=== PATIENT | male | born 1995 | race Caucasian/White ===

== ENCOUNTER 2017-02-18 21:26 | Emergency (ER) | payer BC ==
[~2017-02-18] VITALS: Ht 180.3 cm; Wt 75.0 kg
[2017-02-18 21:27] VITALS: BP 173/95; PULSE 73; RESP 20; TEMP 98.4; O2SAT 100
[2017-02-18] MEDS ORDERED: LISI10TA3 PO (21:45)
[2017-02-18] MEDS ORDERED: diphenhydrAMINE HCL 50 MG/ML VIAL ONE (21:49)
[2017-02-18] MEDS ORDERED: SODIUM CHLOR 0.9% 1000 ML INJ 1,000 ML IV SCH (21:51)
[2017-02-18 21:55] VITALS: BP 155/74; PULSE 77; RESP 16; O2SAT 100
[2017-02-18] MEDS ORDERED: SODIUM CHLOR 0.9% 1000 ML INJ 1,000 ML IV ONE (22:00)
[2017-02-18] MEDS ORDERED: FAMOTIDINE 20 MG/2 ML VIAL IV PUSH ONE (22:00)
[2017-02-18] MEDS ORDERED: DEXAMETHASONE SOD PHOS 20 MG/5 ML VIAL IV PUSH ONE (22:00)
[2017-02-18] MEDS ORDERED: diphenhydrAMINE HCL 50 MG/ML VIAL IVP ONE (22:00)
[2017-02-18] MEDS ORDERED: SODIUM CHLORIDE 0.9% FLUSH 10 ML FLUSH IV FLUSH PRN (22:00)
[2017-02-18] MEDS ORDERED: EPINEPHrine HCL (1:1000) 1 MG/ML VIAL IM ONE (22:00)
--- NOTE | 2017-02-18 22:08 | PD ---
HPI Chief Complaint: Allergic/Adverse Reaction Time Seen by Provider: 21:51 Travel History International Travel<30 days: No Contact w/Intl Traveler<30days: No Traveled to known affect area: No History of Present Illness HPI Patient is a 21-year-old male who presents to emergency room with complaints of allergic reaction. Patient reports that prior to arrival to the ER, he began to break out in a rash all over his body. Reports that now, he has noticed some swelling to his lower lip. Reports no airway compromise, reports that he is able to swallow and breathe without any difficulty. Patient reports that he has not had any change in medications or has not eaten anything different or used any new products. Patient reports that he was recently started on lisinopril a few months ago for treatment of hypertension. Reports no history of an allergic reaction like this in the past. PFSH Past Medical History Diminished Hearing: No Hypertension: Yes Past Surgical History Surgical History: No Previous Surgery Social History Alcohol Use: Yes ("sometimes") Tobacco Use: No Substance Use: No Allergies-Medications (Allergen,Severity, Reaction): Coded Allergies: No Known Allergies (Unverified , 02/18/17) Reported Meds & Prescriptions Reported Meds & Active Scripts Active Diphenhydramine (Diphenhydramine HCl) 25 Mg Cap 25 Mg PO Q6H PRN 7 Days Pepcid (Famotidine) 20 Mg Tab 20 Mg PO BID Epipen 2-Narinder Inj (Epinephrine) 0.3 Mg/0.3 Ml Pfpen 0.3 Mg IM ONCE PRN Reported Lisinopril 10 Mg Tab 10 Mg PO DAILY Review of Systems General / Constitutional: No: Fever Eyes: No: Visual changes HENT: No: Headaches Cardiovascular: No: Chest Pain or Discomfort Respiratory: No: Shortness of Breath Gastrointestinal: No: Abdominal Pain Genitourinary: No: Dysuria Musculoskeletal: No: Pain Skin: Positive Rash, Positive Itching, Positive Hives Neurologic: No: Weakness Psychiatric: No: Depression Endocrine: No: Polydipsia Hematologic/Lymphatic: No: Easy Bruising Physical Exam Narrative GENERAL: Mild distress SKIN: Focused skin assessment warm/dry. Patient with hives throughout his torso and extremities. HEAD: Atraumatic. Normocephalic. EYES: Pupils equal and round. No scleral icterus. No injection or drainage. ENT: No nasal bleeding or discharge. Mucous membranes pink and moist. Minimal swelling to lower lip. No swelling to tongue, uvula midline with no swelling, patient tolerating his airway, no drooling on exam NECK: Trachea midline. No JVD. CARDIOVASCULAR: Regular rate and rhythm. No murmur appreciated. RESPIRATORY: No accessory muscle use. Clear to auscultation. Breath sounds equal bilaterally. GASTROINTESTINAL: Abdomen soft, non-tender, nondistended. Hepatic and splenic margins not palpable. MUSCULOSKELETAL: No obvious deformities. No clubbing. No cyanosis. No edema. NEUROLOGICAL: Awake and alert. No obvious cranial nerve deficits. Motor grossly within normal limits. Normal speech. PSYCHIATRIC: Appropriate mood and affect; insight and judgment normal. Data Data Last Documented VS Vital Signs Date Time Temp Pulse Resp B/P (MAP) Pulse Ox O2 Delivery O2 Flow Rate FiO2 02/18/17 22:30 74 16 129/58 (81) 100 Room Air 02/18/17 21:27 98.4 Orders Orders Diphenhydramine Inj (Benadryl Inj) (02/18/17 21:49) Ecg Monitoring (02/18/17 21:51) Iv Access Insert/Monitor (02/18/17 21:51) Oximetry (02/18/17 21:51) Diphenhydramine Inj (Benadryl Inj) (02/18/17 22:00) Famotidine Inj (Pepcid Inj) (02/18/17 22:00) Sodium Chlor 0.9% 1000 Ml Inj (Ns 1000 M (02/18/17 21:51) Sodium Chloride 0.9% Flush (Ns Flush) (02/18/17 22:00) Epinephrine (1:1000) Inj (Adrenalin (1:1 (02/18/17 22:00) Dexamethasone Inj (Decadron Inj) (02/18/17 22:00) Sodium Chlor 0.9% 1000 Ml Inj (Ns 1000 M (02/18/17 22:00) MDM Medical Decision Making Medical Screen Exam Complete: Yes Emergency Medical Condition: Yes Interpretation(s) Vital Signs Date Time Temp Pulse Resp B/P (MAP) Pulse Ox O2 Delivery O2 Flow Rate FiO2 02/18/17 22:02 80 136/61 02/18/17 21:55 77 16 155/74 (101) 100 Room Air 02/18/17 21:27 98.4 73 20 173/95 (121) 100 Room Air Differential Diagnosis Differential includes allergic reaction Narrative Course Patient with most likely allergic reaction to lisinopril. Patient with diffuse hives throughout body, patient with minimal swelling to lower lip. Patient with no airway compromise at this time. Patient was placed on a monitor and storage bin tender upon arrival to the emergency room. IV dexamethasone, Pepcid as well as Benadryl and IM epinephrine ordered. Plan to monitor patient Vital Signs Date Time Temp Pulse Resp B/P (MAP) Pulse Ox O2 Delivery O2 Flow Rate FiO2 02/18/17 22:30 74 16 129/58 (81) 100 Room Air 02/18/17 22:02 80 136/61 02/18/17 21:55 77 16 155/74 (101) 100 Room Air 02/18/17 21:27 98.4 73 20 173/95 (121) 100 Room Air 10:38pm: patient re-evaluated, patient reports that he is feeling much better at this time. Patient has resolution of swelling to his lower lip, patient has decreased hives throughout his body. Patient reports "i almost feel 100% better. " Patient with no airway involvement at this time. Patient is speaking in full sentences 11:30pm: patient re-evaluated, patient with complete resolution of symptoms at this time. No airway involvement. 12:40AM: patient re-evaluated, patient feeling much better. Patient with complete resolution of symptoms. Patient instructed to stop taking lisinopril. He will follow up with his pcp tomorrow. He was given script for epi- understands need to go to the closest ER if he self administers EPI as he will require cardiac monitoring. Signs and symptoms of when to return to the ER was reviewed with patient in detail. Patient thankful for care Critical Care Narrative Aggregate critical care time was 30 minutes. Time to perform other separately billable procedures was not included in the critical care time. My time did not include minutes spent treating any other patients simultaneously or on activities that did not directly contribute to the patient's treatment. The services I provided to this patient were to treat and/or prevent clinically significant deterioration that could result in: , decompensation, deterioration I provided critical care services requiring my management, as noted below: Chart data review, documentation time, medication orders and management, vital sign assessments/reviewing monitor data, ordering and reviewing lab tests, ordering and interpreting/reviewing x-rays and diagnostic studies, care of the patient and discussion of the patient with the admitting physicians. Diagnosis Primary Impression: Allergic reaction caused by a drug Qualified Codes: T78.40XA - Allergy, unspecified, initial encounter Patient Instructions: General Instructions Additional Instructions: STOP TAKING LISINOPRIL PLEASE CALL YOUR DOCTOR FIRST THING IN THE MORNING FOR EARLIEST FOLLOW UP PLEASE TAKE ALL MEDICATIONS PRESCRIBED RETURN TO ER IF SYMPTOMS WORSEN OR PERSIST GO TO THE NEAREST EMERGENCY ROOM IF YOU ADMINISTER EPI PEN TO YOURSELF YOU WILL REQUIRE MONITORING!! Med/Other Pt SpecificInfo: Prescription(s) given Scripts Prednisone (Prednisone) 20 Mg Tab 20 MG PO BID for 5 Days, #10 TAB 0 Refills Prov: Amie Gtz DO 02/19/17 Diphenhydramine (Diphenhydramine) 25 Mg Cap 25 MG PO Q6H Y for ALLERGIES for 7 Days, #28 CAP 0 Refills Prov: Amie Gtz DO 02/19/17 Famotidine (Pepcid) 20 Mg Tab 20 MG PO BID, #20 TAB 0 Refills Prov: Amie Gtz DO 02/19/17 Epinephrine Inj (Epipen 2-Narinder Inj) 0.3 Mg/0.3 Ml Pfpen 0.3 MG IM ONCE Y for ALLERGIC REACTION, #1 PACK 0 Refills Prov: Amie Gtz DO 02/19/17 Disposition: 01 DISCHARGE HOME Condition: Stable Amie Gtz DO Feb 18, 2017 22:08
[2017-02-18 22:30] VITALS: BP 129/58; PULSE 74; RESP 16; O2SAT 100
[2017-02-19] MEDS ORDERED: DIPH25CA PO (00:33)
[2017-02-19] MEDS ORDERED: FAMO1TAB37 PO (00:33)
[2017-02-19] MEDS ORDERED: EPIP0.3I IM (00:33)
[2017-02-19] MEDS ORDERED: PRED20 PO (00:47)
[2017-02-19 01:09] VITALS: BP 128/56; PULSE 81; RESP 16; O2SAT 98
[2017-02-20] MEDS ORDERED: LOSA50TA PO (05:05)
[2017-02-20] MEDS ORDERED: AMLO5 PO (05:26)
== END 2017-02-19 01:16 | disposition home or self-care (01) ==
LOC: NEPC 21:26
DX: T78.40XA Allergy, unspecified, initial encounter (principal); R22.0 Localized swelling, mass and lump, head; L50.9 Urticaria, unspecified; I10 Essential (primary) hypertension
CPT/HCPCS: 96361; 96372; 96374; 96375; 99291; J0171; J1100; J1200; J7030

== ENCOUNTER 2017-02-20 04:47 | Emergency (ER) | payer BC ==
[~2017-02-20] VITALS: Ht 180.3 cm; Wt 75.0 kg
[~2017-02-20 04:47] MED LIST: DIPH25CA PO; EPIP0.3I IM; FAMO1TAB37 PO; LISI10TA3 PO; PRED20 PO
[2017-02-20 04:48] VITALS: BP 129/70; PULSE 56; RESP 15; TEMP 98.4; O2SAT 99
[2017-02-20 04:58] VITALS: BP 124/74; PULSE 67; RESP 20; O2SAT 98
[2017-02-20] MEDS ORDERED: LOSA50TA PO (05:05)
[2017-02-20] MEDS ORDERED: predniSONE 20 MG TAB PO ONE (05:15)
[2017-02-20] MEDS ORDERED: FAMOTIDINE 20 MG TAB PO ONE (05:15)
[2017-02-20] MEDS ORDERED: AMLO5 PO (05:26)
--- NOTE | 2017-02-20 05:28 | PD ---
HPI Chief Complaint: Allergic/Adverse Reaction Time Seen by Provider: 04:58 Travel History International Travel<30 days: No Contact w/Intl Traveler<30days: No Traveled to known affect area: No History of Present Illness HPI Patient is a 21 year old male who was seen in the ER yesterday for angioedema and allergic reaction due to lisinopril. Patient reports that he talked to his primary care doctor today and he was started on losartan today. Reports that he did take 1 dose of prednisone but did not take his night time dose of prednisone or benadryl. Reports that he woke up with itching to his low back as well as hives to his hands. Reports no swelling to airways, no swelling to lips. Denies any airway compromise. Reports "I just wanted to make sure I'm okay." Patient reports that he did take a benadryl prior to coming to the ER and reports "the hives are actually improving now." PFSH Past Medical History Diminished Hearing: No Hypertension: Yes Tetanus Vaccination: Unknown Influenza Vaccination: No Past Surgical History Surgical History: No Previous Surgery Social History Alcohol Use: Yes ("sometimes") Tobacco Use: No Substance Use: No Allergies-Medications (Allergen,Severity, Reaction): Coded Allergies: lisinopril (Verified Allergy, Mild, RASH, 02/20/17) Reported Meds & Prescriptions Reported Meds & Active Scripts Active Norvasc (Amlodipine Besylate) 5 Mg Tab 5 Mg PO DAILY Prednisone 20 Mg Tab 20 Mg PO BID 5 Days Diphenhydramine (Diphenhydramine HCl) 25 Mg Cap 25 Mg PO Q6H PRN 7 Days Pepcid (Famotidine) 20 Mg Tab 20 Mg PO BID Epipen 2-Narinder Inj (Epinephrine) 0.3 Mg/0.3 Ml Pfpen 0.3 Mg IM ONCE PRN Reported Losartan (Losartan Potassium) 50 Mg Tab 50 Mg PO DAILY Review of Systems General / Constitutional: No: Fever Eyes: No: Visual changes HENT: No: Headaches, Sore Throat, Rhinitis, Rhinorrhea, Neck Pain, Masses Cardiovascular: No: Chest Pain or Discomfort Respiratory: No: Shortness of Breath Gastrointestinal: No: Abdominal Pain Genitourinary: No: Dysuria Musculoskeletal: No: Pain Skin: Positive Rash, Positive Itching Neurologic: No: Weakness Psychiatric: No: Depression Endocrine: No: Polydipsia Hematologic/Lymphatic: No: Easy Bruising Physical Exam Narrative GENERAL: NAD SKIN: Focused skin assessment warm/dry. Patient with hives to lower back, hives to b/l hands HEAD: Atraumatic. Normocephalic. EYES: Pupils equal and round. No scleral icterus. No injection or drainage. ENT: No nasal bleeding or discharge. Mucous membranes pink and moist. Uvula midline and open and patent with no swelling, posterior pharynx with no swelling NECK: Trachea midline. No JVD. CARDIOVASCULAR: Regular rate and rhythm. No murmur appreciated. RESPIRATORY: No accessory muscle use. Clear to auscultation. Breath sounds equal bilaterally. GASTROINTESTINAL: Abdomen soft, non-tender, nondistended. Hepatic and splenic margins not palpable. MUSCULOSKELETAL: No obvious deformities. No clubbing. No cyanosis. No edema. NEUROLOGICAL: Awake and alert. No obvious cranial nerve deficits. Motor grossly within normal limits. Normal speech. PSYCHIATRIC: Appropriate mood and affect; insight and judgment normal. Data Data Last Documented VS Vital Signs Date Time Temp Pulse Resp B/P (MAP) Pulse Ox O2 Delivery O2 Flow Rate FiO2 02/20/17 04:58 67 20 124/74 (91) 98 02/20/17 04:48 98.4 Room Air Orders Orders Prednisone (Deltasone) (02/20/17 05:15) Famotidine (Pepcid) (02/20/17 05:15) [facility] Medical Decision Making Medical Screen Exam Complete: Yes Emergency Medical Condition: Yes Interpretation(s) Vital Signs Date Time Temp Pulse Resp B/P (MAP) Pulse Ox O2 Delivery O2 Flow Rate FiO2 02/20/17 04:58 67 20 124/74 (91) 98 02/20/17 04:51 16 02/20/17 04:48 98.4 56 15 129/70 (89) 99 Room Air Differential Diagnosis allergic reaction Narrative Course patient was placed on a drum sealer upon arrival to er, he did take a benadryl prior to arrival to ER and reports improvement on the hives to his low back and hands. patient with no airway involvement at this time. pepcid as well as dose of prednisone ordered as he did not take his night time dose last night. patient was started on losartan by pcp last night - will change his medications to norvasc given he had angioedema with lisinopril. he will follow up with his primary care doctor and will return to ER as needed patient with near resolution of symptoms at this time. patient with no airway involvement. uvula open and patent with no swelling, posterior pharynx with no swelling. patient is conversive and talking in full sentences. he is agreeable to taking norvasc in replacement of losartan he will follow up as discussed and will return to ER as needed patient thankful for care. Diagnosis Primary Impression: Allergic reaction Qualified Codes: T78.40XA - Allergy, unspecified, initial encounter Patient Instructions: General Instructions Med/Other Pt SpecificInfo: Prescription(s) given Scripts Amlodipine (Norvasc) 5 Mg Tab 5 MG PO DAILY for Blood Pressure Management, #30 TAB 0 Refills Prov: Amie Gtz DO 02/20/17 Disposition: 01 DISCHARGE HOME Condition: Stable Amie Gtz DO Feb 20, 2017 05:28
[2017-02-20 06:13] VITALS: BP 107/64; PULSE 59; RESP 16; O2SAT 98
== END 2017-02-20 06:18 | disposition home or self-care (01) ==
LOC: NEPE 04:47
DX: T78.40XA Allergy, unspecified, initial encounter (principal); L29.9 Pruritus, unspecified; I10 Essential (primary) hypertension; Z79.899 Other long term (current) drug therapy; Z88.8 Allergy status to other drugs, medicaments and biological substances
CPT/HCPCS: 99283; J7512